=== PATIENT | female | born 2000 | race American Indian/Alaskan Native ===

== ENCOUNTER 2018-10-03 00:30 | Emergency (ER) | payer OTHER ==
--- NOTE | 2018-10-03 01:53 | Emergency Department Report ---
ED General Adult HPI - General Chief complaint: Headache Stated complaint: HEADACHE CHALAZION BODY PAINS Time Seen by Provider: 10/03/18 01:48 Source: patient Mode of arrival: Ambulatory Limitations: No Limitations - History of Present Illness Initial comments: [id number]-year-old female presents emergency department complaining of a one week history of dull throbbing headache to the right side and nasal sinus region which is worse with some position of the hip which was preceded by a chalazion to the right thigh that started one month ago and has progressively coming more irritated and now having some drainage and crusting around the site. She states she also has some painful lymph nodes to her right adnexa as well, which thinks may be related. Reports no fever, chills, sweats, conjunctiva, palpitations, nausea, vomiting. Location: head, eyes Radiation: non-radiation Severity scale (0 -10): 4 Quality: aching, dull Consistency: constant Improves with: none Worsens with: none Associated Symptoms: denies: confusion, chest pain, cough, diaphoresis, loss of appetite, malaise, nausea/vomiting, rash, shortness of breath, syncope, weakness - Related Data Previous Rx's Medication Instructions Recorded Last Taken Type Amoxicillin/Potassium Clav 1 each PO BID #20 tablet 10/03/18 Unknown Rx [Augmentin 875-125 Tablet] Ketorolac [Toradol] 10 mg PO Q6H PRN #14 tablet 10/03/18 Unknown Rx Tobramycin 0.3% [Tobrex] 1 applicatio OD Q8HR #1 tube 10/03/18 Unknown Rx ED Review of Systems ROS: Stated complaint: HEADACHE CHALAZION BODY PAINS Other details as noted in HPI Constitutional: denies: chills, fever Eyes: denies: eye pain, eye discharge, vision change ENT: denies: ear pain, throat pain Respiratory: denies: cough, shortness of breath, wheezing Cardiovascular: denies: chest pain, palpitations Endocrine: no symptoms reported. denies: flushing, intolerance to cold, increased thirst, increased urine Gastrointestinal: denies: abdominal pain, nausea, diarrhea Genitourinary: denies: urgency, dysuria, discharge Musculoskeletal: denies: back pain, joint swelling, arthralgia Skin: denies: rash, lesions Neurological: denies: headache, weakness, paresthesias, confusion, abnormal gait, vertigo Psychiatric: denies: anxiety, depression, auditory hallucinations, visual hallucinations, suicidal thoughts Hematological/Lymphatic: denies: easy bleeding, easy bruising ED Past Medical Hx - Past Medical History Previous Medical History?: No - Surgical History Past Surgical History?: Yes Additional Surgical History: Right Eye - Social History Smoking Status: Never Smoker Substance Use Type: None - Medications Home Medications: Home Medications Medication Instructions Recorded Confirmed Last Taken Type Amoxicillin/Potassium Clav 1 each PO BID #20 tablet 10/03/18 Unknown Rx [Augmentin 875-125 Tablet] Ketorolac [Toradol] 10 mg PO Q6H PRN #14 tablet 10/03/18 Unknown Rx Tobramycin 0.3% [Tobrex] 1 applicatio OD Q8HR #1 tube 10/03/18 Unknown Rx ED Physical Exam - General Limitations: No Limitations General appearance: alert, in no apparent distress - Head Head exam: Present: atraumatic, normocephalic - Eye Eye exam: Present: normal appearance, PERRL, EOMI. Absent: scleral icterus, conjunctival injection, periorbital swelling, periorbital tenderness Pupils: Present: normal accommodation - Expanded Eye Exam Expanded Eyelids: Erythema: Left (the lower eyelid has a chalazion and few post pustules along the lowerWas some local redness. There is yellow drainage as well. No lymphangitis. No foreign bodies visualized.) Pupils: Regular, Round: Bilateral, Reactive: Bilateral Sclera/Conjunctival: Normal Inspection: Bilateral - ENT ENT exam: Present: normal exam, normal orophraynx, mucous membranes moist, TM's normal bilaterally - Neck Neck exam: Present: normal inspection, full ROM. Absent: tenderness, lymphadenopathy - Respiratory Respiratory exam: Present: normal lung sounds bilaterally. Absent: respiratory distress, wheezes, rales, chest wall tenderness, accessory muscle use, decreased breath sounds - Cardiovascular Cardiovascular Exam: Present: regular rate, normal rhythm. Absent: systolic murmur, diastolic murmur, rubs, gallop - GI/Abdominal GI/Abdominal exam: Present: soft, normal bowel sounds. Absent: distended, tenderness, hyperactive bowel sounds, hypoactive bowel sounds, organomegaly - Extremities Exam Extremities exam: Present: normal inspection, full ROM, normal capillary refill. Absent: pedal edema, calf tenderness - Back Exam Back exam: Present: normal inspection, full ROM. Absent: CVA tenderness (R), CVA tenderness (L), muscle spasm, paraspinal tenderness - Neurological Exam Neurological exam: Present: alert, oriented X3, CN II-XII intact, normal gait - Psychiatric Psychiatric exam: Present: normal affect, normal mood - Skin Skin exam: Present: warm, dry, intact, normal color. Absent: rash ED Course Vital Signs 10/03/18 00:43 Temperature 97.9 F Pulse Rate 96 H Respiratory 18 Rate Blood Pressure 137/75 O2 Sat by Pulse 99 Oximetry Critical care attestation.: If time is entered above; I have spent that time in minutes in the direct care of this critically ill patient, excluding procedure time. ED Disposition Clinical Impression: Stye, Cephalgia, Sinusitis Disposition: TO HOME OR SELFCARE Is pt being admited?: No Does the pt Need Aspirin: No Condition: Stable Instructions: Sinusitis (ED), Stye (ED) Prescriptions: Amoxicillin/Potassium Clav [Augmentin 875-125 Tablet] 1 each PO BID #20 tablet Tobramycin 0.3% [Tobrex] 1 applicatio OD Q8HR #1 tube Ketorolac [Toradol] 10 mg PO Q6H PRN #14 tablet PRN Reason: Pain Referrals: ARYA BARBOUR MD [Primary Care Provider] - 3-5 Days
== END 2018-10-03 02:55 | disposition home or self-care (01) ==
LOC: ED 00:30
CPT/HCPCS: 99282

== ENCOUNTER 2019-02-11 20:19 | Emergency (ER) | payer SELFPAY ==
--- NOTE | 2019-02-11 20:43 | Event Note ---
Date: 02/11/19 c/o bilateral eye pain, crusting in am. has bilateral axillary abscesses. boil in right axillary is bigger than left and has been there for 2 days. Eye crusting x 4-5 days. no significant pmhx. wears contacts.
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
--- NOTE | 2019-02-11 22:00 | XRay Report ---
CLINICAL DATA: crush injury and pain to 2nd phalange TECHNICAL DATA: Three views were obtained, AP, lateral and oblique. FINDINGS: Fracture distal tuft second digit is present. The visualized joint spaces are normal. IMPRESSION: Fracture distal tuft second digit Signer Name: Francisco Galeano MD Signed: 02/11/2019 9:55 PM Workstation Name: [id number]
[2019-02-11 23:03] VITALS: BP 115/63
== END 2019-02-11 23:02 | disposition home or self-care (01) ==
LOC: ED 20:19
DX: S92.522A Displaced fracture of middle phalanx of left lesser toe(s), initial encounter for closed fracture (principal); S05.02XA Injury of conjunctiva and corneal abrasion without foreign body, left eye, initial encounter; L02.91 Cutaneous abscess, unspecified; W20.8XXA Other cause of strike by thrown, projected or falling object, initial encounter; Y93.89 Activity, other specified; Y92.89 Other specified places as the place of occurrence of the external cause; Y99.8 Other external cause status